=== PATIENT | female | born 1985 | race Caucasian/White ===

== ENCOUNTER 2019-01-22 09:47 | Observation (INO) | payer BC ==
[2019-01-22] MEDS ORDERED: Misoprostol 200 MCG TAB ONE (10:28)
[2019-01-22] MEDS ORDERED: Promethazine HCl 25 MG/ML VIAL IM PRN (10:29)
[2019-01-22] MEDS ORDERED: HYDROcodone/Acetaminophen 5/325 mg Tablet PO PRN ×2 (10:29)
[2019-01-22] MEDS ORDERED: Ibuprofen 800 MG TAB PO PRN (10:29)
[2019-01-22] MEDS ORDERED: Ondansetron PF 4 MG/2 ML Vial IVP PRN (10:29)
[2019-01-22] MEDS ORDERED: Butorphanol Tartrate 1 MG/ML VIAL SLOW IVP PRN (10:29)
[2019-01-22] MEDS ORDERED: CEFAZOLIN 1 GM in Sodium Chloride 0.9% 100 ML IVPB SCH (10:30)
[2019-01-22] MEDS ORDERED: Lactated Ringer's 1,000 ML IV SCH (10:30)
[2019-01-22 10:45] VITALS: BP 114/59; TEMP 98.6; BMI 27.2
[2019-01-22 11:23] LABS: Hemoglobin 6.6 g/dL (12.0-16.0); Mean Corpuscular HGB CONC 32.1 g/dL (32.0-36.0); Mean Corpuscular Hemoglobin 26.2 pg (27.0-31.0); Mean Corpuscular Volume 81.6 fL (78.0-98.0); Mean Platelet Volume 8.8 fL (7.4-10.4); Platelet Count 125 thou/uL (130-400); RBC Distribution Width 14.3 % (11.5-14.5); Red Blood Cell (RBC) Count 2.52 mill/uL (4.20-5.40); White Blood Cell (WBC) Count 10.4 thou/uL (4.8-10.8)
--- NOTE | 2019-01-22 11:59 | HP ---
REASON FOR ADMISSION: Inevitable at 13 weeks' gestation. HISTORY OF PRESENT ILLNESS: Ms. 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 She presented to the office this morning, was seen by Dr. Caldwell and noted to have gestational sac descending into the cervix with bleeding and inevitable with the presence of FHTs. She was sent over for further care. 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 13 weeks by good criteria. Blood type O positive, antibody negative. Unremarkable . MEDICAL HISTORY: Denies. SURGICAL HISTORY: Sleeve gastrectomy, wrist arthroscopy, shoulder, and wisdom teeth. ALLERGIES: DENIES. MEDICATIONS: vitamins. SOCIAL HISTORY: Denies tobacco, alcohol, or IV drug abuse. FAMILY HISTORY: Noncontributory. REVIEW OF SYSTEMS: Noncontributory. PHYSICAL EXAMINATION: GENERAL: White female with severe cramping. VITAL SIGNS: Pulse 102, blood pressure 118/72, respirations 18, temperature 99.1. The patient reports temperature to 99.5 with onset of cramping overnight. HEENT: Within normal limits. LUNGS: Clear to auscultation bilaterally. HEART: Regular rate and rhythm. BREASTS: No masses bilaterally. ABDOMEN: Soft. She has a tender uterus on exam. Upon changing clothes, the patient was noted to have the fetus in caul in the vagina. Placenta was retained. Moderate cramps were noted. IMPRESSION: 1. Inevitable, now completing at 13 weeks' gestation. 2. Possible mild chorioamnionitis/septic . PLAN: We will place the patient in observation on Labor and Delivery. We will give Cytotec 600 p.o. q.4 hours up to 3 doses. Anticipate spontaneous delivery of placenta. One dose of Rocephin. Follow vital signs. Anticipate discharge home in 4 to 8 hours. Job ID: [id number]
[2019-01-22] MEDS ORDERED: Misoprostol 200 MCG TAB PO SCH (13:00)
[2019-01-22] MEDS ORDERED: Acetaminophen 500 MG TAB PO PRN (15:51)
[2019-01-22 15:52] LABS: Hemoglobin 10.7 g/dL (12.0-16.0); Mean Corpuscular HGB CONC 31.9 g/dL (32.0-36.0); Mean Corpuscular Hemoglobin 25.8 pg (27.0-31.0); Mean Corpuscular Volume 80.9 fL (78.0-98.0); Mean Platelet Volume 8.9 fL (7.4-10.4); Platelet Count 196 thou/uL (130-400); RBC Distribution Width 14.4 % (11.5-14.5); Red Blood Cell (RBC) Count 4.13 mill/uL (4.20-5.40)
[2019-01-22] MEDS ORDERED: Acetaminophen 500 MG TAB PO SCH ×2 (16:00→22:00)
--- NOTE | 2019-01-23 07:18 | DIS ---
DATE OF ADMISSION: 01/22/2019 DATE OF DISCHARGE: 01/22/2019 TIME OF SERVICE: 1645 hours. HOSPITAL COURSE: Ms. Dash is a 33-year-old, 2, now para 1, AB1, who presented with inevitable AB, likely early septic AB, and proceeded to deliver the fetus in call spontaneously and then about a hour later the placenta spontaneously. Bleeding has resolved. Initial hematocrit at 1030 hours was obviously erroneous at 20.5%. Repeat was 33%, which is most consistent with the patient's antepartum hematocrit of 36% at [facility]. Vitals, however, have been stable with a pulse in the 80s, blood pressure 120s/70s, and the patient has remained afebrile. Because the patient had a low-grade fever at home and had an elevated white count of 20,000, decision was made to go ahead and give her 1 g of Ancef upon presentation. She will be discharged home on doxycycline 100 p.o. b.i.d. x5 days. She will follow up with Tiny Moya in 2 weeks. Fetus and placenta were sent for pathology. Job ID: [id number]
== END 2019-01-22 17:05 | disposition home or self-care (01) ==
LOC: ERS 09:47 → EDSTATUS 09:56 → INTOOBSV 10:04 → L&D 10:04
PROVIDERS: ADMIT Obstetrics & Gynecology; ATTEND Obstetrics & Gynecology
DX: O03.9 Complete or unspecified spontaneous abortion without complication (principal); Z98.84 Bariatric surgery status; Z79.899 Other long term (current) drug therapy
CPT/HCPCS: 36415; 85027; 86850; 86900; 86901; 88300; 88305; 96361; 96365; 96375; G0378; J0595; J0690